=== PATIENT | male | born 1950 | race Caucasian/White ===

== ENCOUNTER → 2016-08-23 | Outpatient (CLI) | payer OTHER, MEDICARE | LOC: MMPC 11:11 | PROVIDERS: ATTEND Surgery | DX: K62.5 Hemorrhage of anus and rectum (principal); Z87.19 Personal history of other diseases of the digestive system | CPT/HCPCS: 99212; G0463 ==

== ENCOUNTER 2016-08-29 08:27 | Day surgery (SDC) | payer OTHER, MEDICARE ==
[~2016-08-29 08:27] MED LIST: LIDOCAINE W/ SODIUM BICARB 0.5 ML SYR ONE; Lactated Ringers 1,000 ML PRIMARY IV ONE; fentaNYL Inj 100 MCG/2 ML VIAL ONE
[2016-08-29 09:01] VITALS: RESP 13
--- NOTE | 2016-08-29 10:39 | GEN.OPNOTE ---
Colonoscopy Procedure Note Surgery Date: 08/29/16 Preoperative Diagnosis: Rectal bleeding Postoperative Diagnosis: Normal colon. class II internal hemorrhoids one column Procedure: Colonoscopy. Infrared coagulation of an internal hemorrhoid Surgeon: Les Francois MD Anesthesia Provider: Ren Mclean CRNA Anesthesia Type: MAC Indications: Patient's been having rectal bleeding Findings: Prep : Excellent Cecum : Lives video colonoscope was inserted and guided all is cecum. Ileocecal valve clearly identified. He had normal-appearing cecum Ascending : Ascending colons within normal limits Transverse : Transverse colon within normal limits Sigmoid : Descending and sigmoid colon no pathology Rectum : Rectum free from disease except internal hemorrhoid Digital Rectal Exam : No rectal masses palpated A lubricated flexible colonoscope was inserted and passed to the blind end of the cecum. Additional Details: After the colonoscopy scope was removed upper anal scope in. Identified a right posterior lateral hemorrhoid column that was bulging. I believe this is the most likely offending hemorrhoid. I used infrared coagulation to cauterize the hemorrhoid.
[2016-08-29 12:19] VITALS: TEMP 97.4
== END 2016-08-29 11:20 | disposition home or self-care (01) ==
LOC: SDSC 08:27
PROVIDERS: ATTEND Surgery
DX: K62.5 Hemorrhage of anus and rectum (principal); K64.1 Second degree hemorrhoids
CPT/HCPCS: 45378; 46930; J2704; J3010; 00810; J7120